=== PATIENT | male | born 1995 | race Caucasian/White ===

== ENCOUNTER → 2016-11-08 | Outpatient (CLI) | payer BC, OTHER | END | disposition home or self-care (01) | LOC: C.RDSM 12:15 | PROVIDERS: ATTEND Physical Medicine & Rehabilitation Sports Medicine | DX: M25.572 Pain in left ankle and joints of left foot (principal) ==

== ENCOUNTER → 2016-11-17 | Outpatient (CLI) | payer BC, OTHER | END | disposition home or self-care (01) | LOC: C.RDSM 16:50 | PROVIDERS: ATTEND Physical Medicine & Rehabilitation Sports Medicine | DX: S82.832A Other fracture of upper and lower end of left fibula, initial encounter for closed fracture (principal); X58.XXXA Exposure to other specified factors, initial encounter ==

== ENCOUNTER → 2016-11-25 | Outpatient (CLI) | payer BC, OTHER | END | disposition home or self-care (01) | LOC: C.RDSM 14:11 | PROVIDERS: ATTEND Physical Medicine & Rehabilitation Sports Medicine | DX: S82.832A Other fracture of upper and lower end of left fibula, initial encounter for closed fracture (principal); X58.XXXA Exposure to other specified factors, initial encounter ==

== ENCOUNTER → 2016-12-07 | Outpatient (CLI) | payer BC, OTHER | END | disposition home or self-care (01) | LOC: C.RDSM 13:55 | PROVIDERS: ATTEND Physical Medicine & Rehabilitation Sports Medicine | DX: S82.65XD Nondisplaced fracture of lateral malleolus of left fibula, subsequent encounter for closed fracture with routine healing (principal); X58.XXXD Exposure to other specified factors, subsequent encounter ==

== ENCOUNTER → 2016-12-09 | Day surgery (SDC) | payer BC, OTHER ==
--- NOTE | 2016-12-08 23:51 | HISTORY & PHYSICAL EXAMINATION ---
DATE OF ADMISSION: 12/09/2016 DIAGNOSIS: Recurrent epistaxis. HISTORY OF PRESENT ILLNESS: This 20-year-old male presented with recurrent episodes of epistaxis. 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 PAST MEDICAL HISTORY: MEDICAL PROBLEMS: None. MEDICATIONS: None. ALLERGIES: None known. PREVIOUS SURGERIES: None. SOCIAL HISTORY: Negative. FAMILY HISTORY: Negative. REVIEW OF SYSTEMS: Otherwise negative. PHYSICAL EXAMINATION: GENERAL: WNWD male, 5 feet 5 inches, 150 pounds. HEAD: Normocephalic. EYES: Normal. EARS: Tympanic membranes intact. NOSE: There are 3 vessels in the left nostril anteriorly and there is also 1 vessel on the right side. THROAT: Oropharynx normal. NECK: Supple. HEART: RRR. LUNGS: Clear. ABDOMEN: Soft. GENITOURINARY: Deferred. EXTREMITIES: Full range of motion. IMPRESSION: Recurrent epistaxis. PLAN: For endoscopic cautery.
[~2016-12-09] VITALS: Ht 165.1 cm; Wt 59.0 kg
[~2016-12-09] MED LIST: ATROPINE SULFATE 0.1 MG/ML 5ML SYR IV PRN; BACITRACIN OINT 15 GM TUBE ONE; BENZOCAIN/TETRACA/BUTAM SPRAY 200 APPLN/20 GM SPRY ONE; EpHEDrine SULFATE INJ 50 MG/ML AMP IV PRN; EpINEphrine INJ 1MG/ML AMP 1 MG/ML AMP ONE; FENTANYL CITRATE INJ 50 MCG/1 ML 2 ML VIAL IV PRN; GELATIN SPONGE 12-7MM ONE; LIDO 2%/EPINEPHRINE 1:100000 20 ML VIAL INFIL ONE; LIDOCAINE 4% MPF SOAK 5 ML = 1 DOSE TOP ONE; PATIENT'S ALLERGY INFO NEEDS ENTERED SCH; SODIUM CHLORIDE 0.9% 1000ML 1,000 ML IV SCH; TETRACAINE 4% TOPICAL SOLUTION TOP ONE
--- NOTE | 2016-12-09 07:00 | History & Physical Bridge Note ---
H&P Re-Evaluation Bridge Note: I have examined the patient, reviewed the History & Physical and in the interval since the performance of the History & Physical I have noted the following changes of clinical significance: No changes noted
[2016-12-09 10:02] VITALS: Ht 165.1 cm; Wt 59.0 kg
--- NOTE | 2016-12-09 11:28 | Discharge Instructions-SurgCtr ---
Discharge Instructions Date of Service Dec 09, 2016. Visit Reason for Visit: Epistaxis Discharge Discharge Diagnosis / Problem: same Discharge Goals Goal(s): Improve function Activity Recommendations Activity Limitations: resume your previous activity Anesthesia . Post Anesthesia Instructions: If you have had General Anesthesia or IV Sedation: * Do not drive today. * Resume driving when surgeon permits. * Do not make important decisions or sign legal documents today. * Call surgeon for: 1. Temperature elevations greater than 101 degrees F. 2. Uncontrollable pain. 3. Excessive bleeding. 4. Persistent nausea and vomiting. 5. Medication intolerance (nausea, vomiting or rash). * For nausea and vomiting use only clear liquids such as: tea, soda, bouillon until nausea subsides, then gradually increase diet as tolerated. * If you have any concerns or questions, call your surgeon's office. If physician is unavailable and it is an emergency, call 911 or go to the nearest emergency room. . Instructions / Follow-Up Instructions / Follow-Up ACTIVITY RECOMMENDATIONS: * Being up and around is good, but no strenuous activity, heavy lifting or physical exertion for one week. * Keep your head elevated 30 degrees when lying down or sleeping. * Do not blow your nose for 48 hours, sniff back instead. * Avoid hot showers. OVER THE COUNTER MEDICATIONS: * You may use Tylenol * Avoid aspirin or aspirin containing products, e.g. as they may increase bleeding. SPECIAL CARE INSTRUCTIONS: * Expect to have bloody drainage from your nose and/or down your throat for one to three days. Change drip pad as needed. * Begin irrigating your nose with saline solution today, at least six to ten times per day and sniff back to help remove old clots or crust. * You may experience nasal and facial congestion, pain and pressure, this is normal. * Please call with any significant and/or progressive pain, redness, swelling around the eyes, visual changes, fever of 101.5 degrees F, active bleeding or any problems or concerns. * If active bleeding occurs, spray the nose three times at one minute intervals with Afrin spray and call or cell phone: . If unable to reach the doctor, go to the nearest Emergency Department. Special Diet: * Avoid extremely hot fluids. FOLLOW UP VISIT: Follow-up Visit with Dr. Ted If not already scheduled, please call to schedule. Diet Recommendations Home Diet: no limitations Pending Studies Studies pending at discharge: no Medical Emergencies . Who to Call and When: Medical Emergencies: If at any time you feel your situation is an emergency, please call 911 immediately. . Non-Emergent Contact Non-Emergency issues call your: Primary Care Provider . . "Provider Documentation" section prepared by Za Jean. [place] Drug Monitoring Program Search Results: no issues identified
[2016-12-09 11:56] VITALS: TEMP 36.6
[2016-12-09 12:01] VITALS: BP 108/67; PULSE 67; O2SAT 97
--- NOTE | 2016-12-09 12:14 | Anesthesia Progress Nt - [facility] ---
Anesthesia Post Op Note Date & Time Dec 09, 2016 at 12:15 Vital Signs Pain Intensity: 0 Vital Signs Past 12 Hours Date Time Temp Pulse Resp B/P Pulse Ox O2 Delivery O2 Flow Rate FiO2 12/09/16 12:01 67 16 108/67 97 Room Air 12/09/16 11:56 36.6 65 16 118/69 98 Room Air 12/09/16 11:42 65 12/09/16 11:42 66 99 12/09/16 11:40 125/57 12/09/16 11:37 60 16 107/64 99 12/09/16 11:37 58 16 12/09/16 10:07 36.3 70 18 102/51 96 Room Air Notes Mental Status: alert / awake / arousable, participated in evaluation Pt Amnestic to Procedure: Yes Nausea / Vomiting: adequately controlled Pain: adequately controlled Airway Patency, RR, SpO2: stable & adequate BP & HR: stable & adequate Hydration State: stable & adequate Anesthetic Complications: no major complications apparent
--- NOTE | 2016-12-09 12:19 | OPERATIVE REPORT ---
DATE OF OPERATION: 12/09/2016 PREOPERATIVE DIAGNOSIS: Recurrent epistaxis. POSTOPERATIVE DIAGNOSIS: Same. PROCEDURE: Endoscopic cautery. SURGEON: Dr. Jean. ANESTHESIA: Strict local. COMPLICATIONS: None. BLOOD LOSS: 2 mL. 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 DESCRIPTION OF PROCEDURE: The patient was brought to the operating room and placed in the supine position. His nose was anesthetized using 4% topical tetracaine and also using cottonoids with a solution of 4 mL of 4% Xylocaine mixed with 1 mL of epinephrine. The blood vessels were visualized. There were 3 rather large-size vessels on the left side and 2 rather large vessels on the right side. All these vessels were cauterized using the suction cautery with the setting at 20 with no cutting. The anterior nasal packing of Gelfoam with bacitracin was placed. The patient tolerated procedure well and was taken to recovery area in satisfactory condition. I attest to the content of the Intraoperative Record and any orders documented therein. Any exceptio ns are noted below.
== END | disposition home or self-care (01) ==
LOC: X.SURG 09:50
PROVIDERS: ATTEND Otolaryngology
DX: R04.0 Epistaxis (principal)

== ENCOUNTER → 2017-01-05 | Outpatient (CLI) | payer BC, OTHER | END | disposition home or self-care (01) | LOC: C.RDSM 13:56 | PROVIDERS: ATTEND Physical Medicine & Rehabilitation Sports Medicine | DX: S82.65XD Nondisplaced fracture of lateral malleolus of left fibula, subsequent encounter for closed fracture with routine healing (principal); X58.XXXD Exposure to other specified factors, subsequent encounter ==